=== PATIENT | male | born 1985 | race Caucasian/White ===

== ENCOUNTER 2020-08-04 10:36 | Emergency (ER) | payer OTHER, SELFPAY ==
[2020-08-04 10:49] VITALS: BP 116/75
--- NOTE | 2020-08-04 11:52 | NUR ---
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
--- NOTE | 2020-08-04 12:13 | NUR ---
PATIENT WALKED BACK FROM TRIAGE WITH CHIEF C/O RIGHT SHOULDER PAIN 04/14. PATIENT STATES HE WORKED YESTERDAY AND WHEN HE GOT HOME HIS RIGHT SHOULDER STARTED THROBBING. PATIENT DENIES ANY INJURY OR TRAUMA,DENIES LIFTING ANYTHING HEAVY. NO SIGNS OF ACUTE DISTRESS,ERMD AT BEDSIDE FOR EVALUATION,.
[2020-08-04] MEDS ORDERED: KETOROLAC 30 MG/1 ML ONE (12:17)
[2020-08-04] MEDS ORDERED: KETOROLAC 30 MG/1 ML IM ONE (12:30)
--- NOTE | 2020-08-04 12:43 | NUR ---
Patient given discharge instructions and prescription and they have confirmed that they understand the instructions, all questions answered. All patient belongings gathered and taken with patient. Patient ambulatory with steady gait to discharge desk.
== END 2020-08-04 12:44 | disposition home or self-care (01) ==
LOC: ED 12:40
DX: S29.012A Strain of muscle and tendon of back wall of thorax, initial encounter (principal); M25.511 Pain in right shoulder; R07.9 Chest pain, unspecified; X58.XXXA Exposure to other specified factors, initial encounter; Y93.89 Activity, other specified; Y92.89 Other specified places as the place of occurrence of the external cause; Y99.8 Other external cause status
CPT/HCPCS: 71045; 73030; 93005; 96372; 99284; J1885